=== PATIENT | female | born 1975 | race Asian ===

== ENCOUNTER 2017-07-21 11:10 | Outpatient (CLI) | payer OTHER ==
[2017-07-21 12:16] LABS: CHOL/HDL RATIO 5.7 (<4.4); CHOLESTEROL 243 mg/dL; GLUCOSE,FASTING 168 mg/dL (70-100); HDL CHOLESTEROL 43 mg/dL; LDL/HDL RATIO 3.8 (<4.4); TRIGLYCERIDES 190 mg/dL; VLDL CHOLESTEROL 38 mg/dL
== END 2017-07-21 11:11 | disposition home or self-care (01) ==
LOC: LAB 11:10
PROVIDERS: ATTEND Registered Nurse
DX: Z01.419 Encounter for gynecological examination (general) (routine) without abnormal findings (principal)
CPT/HCPCS: 36415; 80061; 82947; 84443

== ENCOUNTER 2017-08-05 14:00 | Outpatient (CLI) | payer OTHER | END 2017-08-05 14:01 | disposition home or self-care (01) | LOC: NS 14:00 | PROVIDERS: ATTEND Registered Nurse | DX: Z71.3 Dietary counseling and surveillance (principal); R73.01 Impaired fasting glucose; Z68.24 Body mass index [BMI] 24.0-24.9, adult | CPT/HCPCS: 97802 ==

== ENCOUNTER 2017-08-25 10:23 | Outpatient (CLI) | payer OTHER ==
--- NOTE | 2017-08-27 09:35 | Mammography Report ---
DATE OF SERVICE: 08/25/2017 DIGITAL SCREENING MAMMOGRAM: 08/25/2017 CLINICAL INDICATION: A 41-year-old nulliparous patient, for new baseline. COMPARISON: The patient reports having had previous mammograms in [place], [place], but films are not yet available for direct comparison. If they become available, an addendum will be issued. Otherwise, this will serve as a new baseline. TECHNIQUE: Routine CC and MLO projections were obtained of the breasts. Bilateral laterally exaggerated craniocaudal views. FINDINGS: The breasts demonstrate heterogeneously dense fibroglandular parenchyma bilaterally. Coarse and punctate, typically benign calcifications are present. No suspicious masses, clustered microcalcifications, or regions of architectural distortion are identified. IMPRESSION: BENIGN FINDINGS. RECOMMENDATION: ROUTINE ANNUAL SCREENING UNLESS OTHERWISE CLINICALLY INDICATED. BIRADS CATEGORY 2-BENIGN FINDINGS. STANDARD QUALIFYING STATEMENTS: 1. This examination was reviewed with the aid of Computer-Aided Detection (CAD). 2. A negative or benign imaging report should not delay biopsy if clinically suspicious findings are present. Consider surgical consultation if warranted. More than 5% of cancers are not identified by imaging. 3. Dense breasts may obscure an underlying neoplasm. TD: 08/27/2017 10:34
== END 2017-08-25 10:24 | disposition home or self-care (01) ==
LOC: DI.N 10:23
PROVIDERS: ATTEND Registered Nurse
DX: Z12.31 Encounter for screening mammogram for malignant neoplasm of breast (principal)
CPT/HCPCS: 77067

== ENCOUNTER 2017-09-02 09:57 | Outpatient (CLI) | payer OTHER | END 2017-09-02 09:58 | disposition home or self-care (01) | LOC: NS 09:57 | PROVIDERS: ATTEND Registered Nurse | DX: Z71.3 Dietary counseling and surveillance (principal); R73.01 Impaired fasting glucose | CPT/HCPCS: 97803 ==